=== PATIENT | female | born 1960 | race Caucasian/White ===

== ENCOUNTER 2018-01-05 08:43 | Inpatient (IN) | payer BC ==
[2017-12-31 14:03] LABS: Basophils # (auto) 0.1 uL; Eosinophils # (auto) 0.1 uL; Hemoglobin 14.6 g/dL (12.2-16.2); Lymphocytes # (auto) 2.2 uL; Mean Corpuscular Hemoglobin 27.3 pg (28.0-32.0); Mean Corpuscular Hgb Conc. 33.2 g/dL (32.0-36.0); Mean Corpuscular Volume 82.4 fL (80.0-100.0); Monocytes # (auto) 0.5 uL; Monocytes % (auto) 5.4 % (0.0-12.0); Neutrophils # (auto) 5.8 uL; Neutrophils % (auto) 67.6 % (37.0-80.0); Platelet Count (auto) 291 10^3/uL (140-450); Red Blood Cells 5.34 10^6/uL (4.0-5.20); Red Cell Distribution Width 13.9 % (11.8-14.3); White Blood Cell 8.6 10^3/uL (4.4-10.8)
[2017-12-31 14:07] LABS: Urine Bacteria NONE SEEN /hpf (None Seen); Urine Blood Negative /uL (Negative); Urine Specific Gravity 1.004 (1.001-1.035); Urine WBC 1 /hpf (0 - 5)
[2017-12-31 14:20] LABS: BUN/Creatinine Ratio 14.4; Calcium 8.9 mg/dL (8.5-10.1); Potassium 3.9 mmol/L (3.5-5.1)
[2017-12-31 14:23] LABS: Bilirubin, Total 0.4 mg/dL (0.2-1.0); Total Protein 7.9 g/dL (6.4-8.2)
[2017-12-31 14:24] LABS: INR 1.02 (0.9-1.15); Partial Thromboplastin Time 27.8 sec (23.78-33.04); Prothrombin Time 10.9 sec (9.27-12.13)
[~2018-01-05] VITALS: Ht 160 cm; Wt 111.6 kg
[~2018-01-05 08:43] MED LIST: OMEP20TA PO
[2018-01-05] MEDS ORDERED: ceFAZolin 1GM/50ML 100 ML IV ONE (09:02)
[2018-01-05] MEDS ORDERED: SODIUM CHLORIDE LOCK 10 ML ONE (09:11)
[2018-01-05] MEDS ORDERED: MIDAZOLAM HCL 1MG/1ML-2 ML VIAL ONE (09:11)
[2018-01-05] MEDS ORDERED: MORPHINE SULF(PF) 0.5MG/ML 10ML VIAL ONE (09:11)
[2018-01-05] MEDS ORDERED: fentaNYL CITRATE 100 MCG/2 ML VL ONE (09:11)
[2018-01-05] MEDS ORDERED: PROPOFOL 10 MG/ML 20 ML IV ONE ×5 (09:11→15:04)
[2018-01-05] MEDS ORDERED: ONDANSETRON HCL 4 MG/2 ML VIAL ONE (09:11)
[2018-01-05] MEDS ORDERED: TETRACAINE 1% INJ 2 ML VIAL IJ ONE (10:47)
[2018-01-05] MEDS ORDERED: diphenhdrAMINE HCL 50 MG/1 ML VL IV PRN (12:30)
[2018-01-05] MEDS ORDERED: HYDROmorphone HCL 2 MG/ML VL IV PRN ×2 (12:30→15:15)
[2018-01-05] MEDS ORDERED: METOCLOPRAMIDE HCL 5MG/ml INJ 2ml VIAL IV ONE (12:30)
[2018-01-05] MEDS ORDERED: KETOROLAC TROMETH 30 MG/ML 1ML VIAL IV ONE (12:30)
[2018-01-05] MEDS ORDERED: NALOXONE HCL 0.4 MG/ML VIAL IV PRN (12:30)
[2018-01-05] MEDS ORDERED: LACTATED RINGER'S 1,000 ML IV SCH (15:09)
[2018-01-05] MEDS ORDERED: ONDANSETRON HCL 4 MG/2 ML VIAL IV PRN (15:15)
[2018-01-05] MEDS: ceFAZolin 1GM/50ML 50 ML IV SCH ×2 (15:15→23:30)
[2018-01-05] MEDS ORDERED: TEMAZEPAM 15 MG CAP PO PRN (15:15)
[2018-01-05 16:20] VITALS: BP 121/69
[2018-01-05 17:26] VITALS: BP 122/70
[2018-01-05] MEDS: HYDROcodone-ACET 10/325MG TAB PO PRN (18:50)
[2018-01-05] MEDS: DOCUSATE SOD 100 MG CAP PO SCH (21:38)
[2018-01-05] MEDS: SODIUM CHLOR 0.9% PF (SALINE LOCK) 10ML VIAL/SYR IV SCH (21:38)
[2018-01-05] MEDS: oxyCODONE ER 10 MG TAB PO SCH (21:38)
[2018-01-05 22:00] VITALS: BP 110/63
[2018-01-06] MEDS: ceFAZolin 1GM/50ML 50 ML IV SCH (05:22)
[2018-01-06] MEDS: HYDROcodone-ACET 10/325MG TAB PO PRN ×2 (05:22→16:24)
[2018-01-06] MEDS: SODIUM CHLOR 0.9% PF (SALINE LOCK) 10ML VIAL/SYR IV SCH ×3 (05:26→21:45)
[2018-01-06 06:05] VITALS: BP 130/74
[2018-01-06 08:12] LABS: Hematocrit 36.6 % (36.0-46.0); Hemoglobin 12.3 g/dL (12.2-16.2)
[2018-01-06 08:30] VITALS: BP 130/80
[2018-01-06 09:03] VITALS: BP 130/80
[2018-01-06] MEDS: oxyCODONE ER 10 MG TAB PO SCH ×2 (10:40→21:45)
[2018-01-06] MEDS: ENOXAPARIN SOD 40 MG/0.4 ML SYRINGE SC SCH (10:41)
[2018-01-06] MEDS: DOCUSATE SOD 100 MG CAP PO SCH ×2 (10:41→21:45)
[2018-01-06 11:55] VITALS: BP 145/80
[2018-01-06 16:24] VITALS: BP 125/84
[2018-01-06 21:46] VITALS: BP 147/78
[2018-01-07 05:00] VITALS: BP 132/85
[2018-01-07] MEDS: SODIUM CHLOR 0.9% PF (SALINE LOCK) 10ML VIAL/SYR IV SCH ×3 (05:29→21:54)
[2018-01-07 07:31] LABS: Hemoglobin 12.1 g/dL (12.2-16.2)
[2018-01-07 08:30] VITALS: BP 128/70
[2018-01-07] MEDS: ACETAMINOPHEN 325 MG TAB PO PRN ×2 (08:49→20:29)
[2018-01-07 08:55] VITALS: BP 123/78
[2018-01-07] MEDS: ENOXAPARIN SOD 40 MG/0.4 ML SYRINGE SC SCH (09:56)
[2018-01-07] MEDS: DOCUSATE SOD 100 MG CAP PO SCH ×2 (09:56→21:54)
[2018-01-07] MEDS: oxyCODONE ER 10 MG TAB PO SCH ×2 (09:59→21:55)
[2018-01-07 13:00] VITALS: BP 128/70
[2018-01-07 17:00] VITALS: BP 125/72
[2018-01-07 22:00] VITALS: BP 133/75
[2018-01-08 05:36] VITALS: BP 122/74
[2018-01-08 05:49] LABS: Hematocrit 35.7 % (36.0-46.0); Hemoglobin 12.1 g/dL (12.2-16.2)
[2018-01-08] MEDS: SODIUM CHLOR 0.9% PF (SALINE LOCK) 10ML VIAL/SYR IV SCH ×2 (06:05→19:45)
[2018-01-08 08:00] VITALS: BP 125/77
[2018-01-08] MEDS: ACETAMINOPHEN 325 MG TAB PO PRN (08:30)
[2018-01-08] MEDS: ENOXAPARIN SOD 40 MG/0.4 ML SYRINGE SC SCH (09:53)
[2018-01-08] MEDS: DOCUSATE SOD 100 MG CAP PO SCH (09:53)
[2018-01-08] MEDS: oxyCODONE ER 10 MG TAB PO SCH (09:53)
[2018-01-08 12:12] VITALS: BP 132/79
[2018-01-08 16:55] VITALS: BP 120/67
[2018-01-08 18:47] VITALS: BP 120/67
== END 2018-01-08 19:50 | disposition home health service (06) | DRG 470 ==
LOC: SUR 08:43 → CENTRAL 08:44
PROVIDERS: ADMIT Orthopaedic Surgery; ATTEND Family Medicine
PROC: 0QSF0ZZ Reposition Left Patella, Open Approach (ICD-10-PCS; 2018-01-05)
PROC: 0KNR0ZZ Release Left Upper Leg Muscle, Open Approach (ICD-10-PCS; 2018-01-05)
PROC: 0MBP0ZZ Excision of Left Knee Bursa and Ligament, Open Approach (ICD-10-PCS; 2018-01-05)
PROC: 0SRD0J9 Replacement of Left Knee Joint with Synthetic Substitute, Cemented, Open Approach (ICD-10-PCS; principal; 2018-01-05 11:11)
DX: M17.12 Unilateral primary osteoarthritis, left knee (principal); M71.562 Other bursitis, not elsewhere classified, left knee; G89.29 Other chronic pain; E66.01 Morbid (severe) obesity due to excess calories; K21.9 Gastro-esophageal reflux disease without esophagitis; Z68.41 Body mass index [BMI] 40.0-44.9, adult
CPT/HCPCS: 36415; 73560; 80053; 81001; 85014; 85018; 85025; 85610; 85730; 86850; 86900; 86901; 97110; 97116; 97163; 97530; A6257; G0378; J0690; J2250; J2405; J2704